=== PATIENT | female | born 1985 ===

== ENCOUNTER → 2018-10-14 | Outpatient (CLI) | payer OTHER | END | disposition home or self-care (01) | LOC: PRENATAL 13:04 | DX: O36.8122 Decreased fetal movements, second trimester, fetus 2 (principal) ==

== ENCOUNTER 2019-01-07 07:45 | Inpatient (IN) | payer OTHER ==
[~2019-01-07] VITALS: Ht 167.6 cm; Wt 3.6 kg
[2019-01-13] MEDS ORDERED: OBSTETRIX ONE1 EACH PO (08:53)
== END 2019-01-15 12:33 | disposition home or self-care (01) | DRG 788 ==
LOC: LDR 01-12 05:30 → OB/GYN 01-12 05:30 → O/R 01-12 11:44 → OB/GYN 01-12 13:45
PROVIDERS: ADMIT Obstetrics & Gynecology
PROC: 4A1HXCZ Monitoring of Products of Conception, Cardiac Rate, External Approach (ICD-10-PCS; 2019-01-12)
PROC: 10D00Z1 Extraction of Products of Conception, Low, Open Approach (ICD-10-PCS; principal; 2019-01-12 09:00)
DX: O82 Encounter for cesarean delivery without indication (principal); O64.1XX0 Obstructed labor due to breech presentation, not applicable or unspecified; Z3A.39 39 weeks gestation of pregnancy; Z37.0 Single live birth